=== PATIENT | male | born 1980 | race American Indian/Alaskan Native ===

== ENCOUNTER 2016-12-04 02:26 | Emergency (ER) | payer OTHER ==
--- NOTE | 2016-12-04 03:07 | Cat Scan Report ---
FINAL REPORT EXAM: CT HEAD/BRAIN WO CON HISTORY: neuro deficits \T\lt; 6hrs or sx present upon awakening TECHNIQUE: CT scan of the brain without IV contrast. Axial images only. PRIORS: None FINDINGS: Brain volume is normal for age. No hemorrhage, mass, mass effect, or midline shift. No hydrocephalus. Normal basal cisterns. No pathologic extra-axial fluid collection. No evidence of acute infarct. No skull fracture. IMPRESSION: 1. No acute intracranial finding.
[2016-12-04 04:08] LABS: Basophils % (Auto) 0.9 % (0.0-1.8); Eosinophils % (Auto) 2.2 % (0.0-4.3); Hematocrit 38.4 % (35.5-45.6); Hemoglobin 13.4 gm/dl (11.8-15.2); Mean Corpuscular HGB Conc 35 % (32-34); Mean Corpuscular Hemoglobin 31 pg (28-32); Mean Corpuscular Volume 89 fl (84-94); Platelet Count 269 K/mm3 (140-440); Red Blood Count 4.33 M/mm3 (3.65-5.03); Red Cell Distribution Width 13.9 % (13.2-15.2)
[2016-12-04 04:26] LABS: BUN/Creatinine Ratio 7.77; Blood Urea Nitrogen 7 mg/dL (9-20); Calcium 8.8 mg/dL (8.4-10.2); Carbon Dioxide 26 mmol/L (22-30); Glucose 106 mg/dL (75-100); Potassium 3.5 mmol/L (3.6-5.0); Sodium 140 mmol/L (137-145)
[2016-12-04 04:27] LABS: INR 0.95 (0.87-1.13)
[2016-12-04 04:28] LABS: Partial Thromboplastin Time 28.6 Sec. (24.2-36.6)
[2016-12-04 04:52] LABS: Anion Gap 17 mmol/L
--- NOTE | 2016-12-04 06:31 | Emergency Department Report ---
HPI - General Chief Complaint: Neuro Symptoms/Deficit Time Seen by Provider: 12/04/16 06:00 - HPI HPI: This is a 36-year-old Afro-[place] male who presents to the emergency department after he had an episode yesterday at work in which she began having some right hand paresthesias, and felt like he was "talking funny" and began to have a headache that was generalized. Patient says that he then walked outside of the customer's house and walked back in and all the symptoms slowly resolved. Overall lasted for less than 1 hour. He did not take anything for symptoms prior to presentation. He has a history of hypertension for which he takes amlodipine. His primary care doctor is a Dr. Rowland. He denies any chest pain, vision change, problems with motor function, fever, back pain, nausea, vomiting or any other neurological deficits. Nothing like this has ever happened to him before. No recent travel or sick contacts at home. He denies any tobacco or illicit drug use or abuse. ED Past Medical Hx - Past Medical History Previous Medical History?: Yes Hx Hypertension: Yes - Surgical History Past Surgical History?: No - Social History Smoking Status: Never Smoker Substance Use Type: None - Medications Home Medications: Home Medications Medication Instructions Recorded Confirmed Last Taken Type amLODIPine [Norvasc] 10 mg PO DAILY 12/04/16 12/04/16 12/03/16 History ED Review of Systems ROS: Stated complaint: SLURRED SPEECH Other details as noted in HPI Comment: All other systems reviewed and negative Constitutional: denies: chills, fever Eyes: denies: eye pain, eye discharge, vision change ENT: denies: ear pain, throat pain Respiratory: denies: cough, shortness of breath, wheezing Cardiovascular: denies: chest pain, palpitations Gastrointestinal: denies: abdominal pain, nausea, diarrhea Genitourinary: denies: urgency, dysuria Musculoskeletal: denies: back pain, joint swelling, arthralgia Skin: denies: rash, lesions Neurological: headache, paresthesias Physical Exam - Physical Exam Vital Signs: Vital Signs 12/04/16 12/04/16 12/04/16 02:31 05:56 06:00 Temperature 97.6 F Pulse Rate 54 L 57 L 48 L Respiratory 18 14 14 Rate Blood Pressure 142/94 139/86 O2 Sat by Pulse 100 99 Oximetry 12/04/16 06:14 Temperature Pulse Rate Respiratory 20 Rate Blood Pressure O2 Sat by Pulse 100 Oximetry Physical Exam: GENERAL: The patient is well-developed well-nourished. HEENT: Normocephalic. Atraumatic. Extraocular motions are intact. Patient has moist mucous membranes. Pupils equal reactive to light bilaterally. NECK: Supple. Trachea is midline. CHEST/LUNGS: Clear to auscultation. There is no respiratory distress noted. HEART/CARDIOVASCULAR: Regular. There is no tachycardia. There is no gallop rub or murmur. ABDOMEN: Abdomen is soft, nontender. Patient has normal bowel sounds. There is no abdominal distention. SKIN: There is no rash. There is no edema. There is no diaphoresis. NEURO: The patient is awake, alert, and oriented. The patient is cooperative. The patient has no focal neurologic deficits. The patient has normal speech and gait. Cranial nerves II through XII grossly intact. No pronator drift. No dysmetria. MUSCULOSKELETAL: There is no tenderness or deformity. There is no limitation range of motion. There is no evidence of acute injury. Muscle strength 5 out of 5 for upper and lower extremities bilaterally. Radial pulse +2 over 4 bilaterally. ED Course Vital Signs 12/04/16 12/04/16 12/04/16 02:31 05:56 06:00 Temperature 97.6 F Pulse Rate 54 L 57 L 48 L Respiratory 18 14 14 Rate Blood Pressure 142/94 139/86 O2 Sat by Pulse 100 99 Oximetry 12/04/16 06:14 Temperature Pulse Rate Respiratory 20 Rate Blood Pressure O2 Sat by Pulse 100 Oximetry - Consultations Consultation #1: I spoke with the storage facility rental clerk on-call, Dr. Hutchison, regarding the patient's EKG findings of marked sinus bradycardia with first-degree AV block and the patient' s medication of amlodipine. The storage facility rental clerk does not feel that this is the cause of the patient's first-degree AV block and says that the patient is a symptomatically that he feels he is safe for discharge home. 12/04/16 07:36 ED Medical Decision Making - Lab Data Result diagrams: 12/04/16 03:14 12/04/16 03:14 - EKG Data -: EKG Interpreted by Me EKG shows normal: sinus rhythm, axis, intervals (prolonged IN interval indicating a degree AV block), QRS complexes (LVH), ST-T waves (nonspecific ST- T changes most likely early repolarization) Rate: bradycardia (48 bpm) - EKG Data Interpretation: other (first-degree AV block, LVH, nonspecific ST-T changes with bradycardia) - Radiology Data Radiology results: report reviewed CT of the head does not show any acute process including no hemorrhage, mass, shift, diffuse edema or skull fracture. - Medical Decision Making 36-year-old male who had some TIA-like symptoms yesterday with right hand paresthesia and some slurred speech and/or aphasia that lasted for about 15 minutes or so. Patient has been asymptomatic for at least 12 hours at this point. He had a CT of the brain that did not show any bleed, shift, mass or any acute process. Patient labs have been unremarkable. His vital signs are stable throughout his ED course but he does display some occasional bradycardia. Patient most he has a normal heart rate when he is awake but when he is sleeping or resting sometimes he will drop into the 50s or has even reached 48 bpm. An EKG was done that shows sinus bradycardia secondary to first -degree AV block. Otherwise EKG does not show any signs of STEMI. Patient does not have any focal, motor or sensory deficits. Patient appears safe for discharge home at this time. He has good follow-up with primary care and will be given the cardiology referral for follow-up regarding his first-degree AV block. He will return to the emergency department immediately with any recurrent episodes of his slurred speech, paresthesias or any neurological deficits or acute distress. He understands and agrees the plan. - Differential Diagnosis TIA, bradycardia, brain bleed, seizure Critical Care Time: No Critical care attestation.: If time is entered above; I have spent that time in minutes in the direct care of this critically ill patient, excluding procedure time. ED Disposition Clinical Impression: First degree AV block, Paresthesia, Slurring of speech Disposition: DISCHARGED TO HOME OR SELFCARE Is pt being admited?: No Condition: Stable Instructions: Bradycardia (ED), Paresthesia (ED), Transient Ischemic Attack (ED ) Additional Instructions: You've been seen here today after what appears to be right hand paresthesia and some slurred speech. I cannot definitively tell you that you had a transient ischemic attack (TIA), but if you have any recurrence of any of the paresthesias , slurred speech, or any neurological deficits, or any acute distress whatsoever , he needs to return to the emergency department immediately. Please follow-up with her primary care doctor. I have given you a referral for a local storage facility rental clerk Dr. Barron, to follow-up regarding your first-degree AV block and bradycardia. Referrals: PRIMARY CAREMD [Primary Care Provider] - 3-5 Days SUE GARLAND MD [Staff Physician] - 3-5 Days Time of Disposition: 07:41
[2016-12-04 07:53] VITALS: BP 132/60
== END 2016-12-04 07:52 | disposition home or self-care (01) ==
LOC: ED 02:26
DX: I44.0 Atrioventricular block, first degree (principal); R20.9 Unspecified disturbances of skin sensation; R47.81 Slurred speech; I10 Essential (primary) hypertension
CPT/HCPCS: 36415; 70450; 80048; 82962; 84443; 84484; 85025; 85610; 85670; 85730; 93005; 93010